=== PATIENT | male | born 1950 | race Caucasian/White ===

== ENCOUNTER 2016-11-10 13:16 | Day surgery (SDC) | payer OTHER ==
[~2016-11-10 13:16] MED LIST: DIPRIVAN 200 MG/20 ML IV ONE; Kenalog-40 IM ONE; Lactated Ringers 1,000 ML IV ONE; Lactated Ringers 1,000 ML IV SCH; Sensorcaine 0.25% 10 ML IJ ONE
[2016-11-10 14:48] VITALS: BP 148/78; PULSE 63; O2SAT 96
--- NOTE | 2016-11-10 17:19 | XRAY ---
6 seconds fluoroscopy time in surgery for right MBB L2-5.
--- NOTE | 2016-11-10 17:31 | XRAY ---
Indication: Right L2-L5 median branch block. Intraoperative fluoroscopy was provided for 6 seconds. Single digital spot image submitted for interpretation demonstrates 4 posterior spinal needles with the tips projecting over the expected course of the right L2-L5 nerve roots. Correlate with intraoperative findings/report.
== END 2016-11-10 16:18 | disposition home or self-care (01) ==
LOC: SDC-PAIN 13:16
PROVIDERS: ATTEND Pain Medicine Interventional Pain Medicine
DX: M51.36 Other intervertebral disc degeneration, lumbar region (principal); M47.816 Spondylosis without myelopathy or radiculopathy, lumbar region; M61.3 Calcification and ossification of muscles associated with burns
CPT/HCPCS: 64493; 64494; 64495; 72020; 77003; J2704; J3301